=== PATIENT | female | born 2005 | race Caucasian/White ===

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

== ENCOUNTER 2024-10-10 08:27 | Outpatient (REF) | payer OTHER, SELFPAY ==
--- OUTSIDE RECORDS SUMMARY | 2024-10-10 08:35 | XMS_ITS | Clinical Summary ---
Author Organization [facility] Address [address] [place] [address] Phone Care Team Providers Care [employer] Technician Name Role Phone Gia Davila MD Primary Care Pro vider Allergies No known active allergies Medications levothyroxine 88 MCG tablet Take 100 mcg by mouth once daily. 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 Oligomenorrhea, unspecified 02/21/2020 Overview (02/21/2020): Under [facility] care, s/p Provera challenge, continues to have a infrequent period Picking own skin 02/21/2020 Assessment & Plan (02/21/2020 3:12 PM EST): She admits to picking on her skin when she has a bite or scratch Attention and concentration deficit 02/21/2020 Assessment & Plan (02/21/2020 3:15 PM EST): Initial Ona's were given to GM Encounters Date Type Department Care Team Description 10/02/2024 Telephone [facility] [address] [place] [phone] Yoanna Hernandez NP 09/29/2024 9:00 AM EDT Consult [facility] [address] [place] [id number] Sylvester West LICSW Encounter for behavioral health screening (Primary Dx) 09/29/2024 9:00 AM EDT Office Visit [facility] [address] [place] [phone] Yoanna Hernandez NP Well adult exam (Primary Dx); Need for vaccination; BMI 40.0-44.9, adult; Pituitary dysfunction; Class 3 severe obesity due to excess calories without serious comorbidity with body mass index (BMI) of 40.0 to 44.9 in adult; Other specified hypothyroidism; Sleep difficulties; Snoring; Positive depression screening from Last 3 Months Immunizations Immunization Administration Dates Next Due DTaP 01/12/2006, 6,01/27/2005,12/05 HPV Vaccine 9 Valent 09/14/2022,02/21/2020 Hep A, ped/adol 05/08/2011,01/29/2010 Hep B, ped/adol 04/20/2005, 5,2004,09/27 HiB 01/12/2006, 6,01/27/2005,12/05 IPV 01/12/2009, 6,01/27/2005,12/05 Influenza, injectable, quadr ivalent, preservative free 02/24/2021,02/21/2020 MMR 01/13/2008,10/15/2005 Meningococcal B Trumenba 09/29/2024,09/14/2022 Meningococcal Conj (Menactra) MCV4P 02/24/2021 Meningococcal Conj (Menveo) MCV4O 01/27/2016 Pneumococcal Conjugate 10/16/2007,2005,01/27/2005,12/05 Pneumococcal Conjugate 13-Valent 05/03/2014 Tdap 01/27/2016 Varicella 01/12/2009,10/15/2005 Family History Medical History Relation Name Comments Asthma Mother Relation Name Status Comments Father Mother Alive Social History Tobacco Use Types Packs/Day Years Used Date Smoking Tobacco: Never Smokeless Tobacco: Former Tobacco Cessation:Counseling Given: Not Answered Alcohol Use Standard Drinks/Week Comments Never 0 (1 standard drink = 0.6 oz pur e alcohol) Hunger/Food Answer Date Recorded In the last 12 months, did y ou or your family ever eat less than you felt you should because there wasn't enough money for food? No 09/29/2024 Stable Housing Answer Date Recorded Are you worried that in the next 2 months you may not have stable housing? No 09/29/2024 Transportation Concerns Answer Date Rec orded In the last 12 months, have you or your family ever had to go without healthcare because you didn't have a way to get there? No 09/29/2024 Hazards in Home Answer Date Recorded Think about the place you li ve. Do you have problems with any of the following? Pests (mice or roaches), mold, no/not working smoke detectors, water leaks, no window guards. No 2024 Financing Utilities Answer Date Recorde d In the last 12 months, has t he electric, gas, oil, or water company threatened to shut off your services in your home? No 09/29/2024 Safety at Home Answer Date Recorded Are you or your family worried about feeling saf e in your home? No 09/29/2024 Outside Support Answer Date Recorded Do you feel that you need mo re support from other people or programs to help you care for yourself or your family? No 09/29/2024 Understanding Health Concerns Answer Da te Recorded Do you need help understandi ng your or your child's healthcare needs (diagnosis, medications, plan, etc.)? No 09/29/2024 Financing Health Concerns Answer Date R ecorded In the last 12 months, was t here a time when your child needed to see a doctor or get medications or supplies but could not because of cost? No 09/29/2024 Missing School or Work Answer Date Garcia rded Did you or your child miss s chool or work because of a health problem that could have been avoided? No 09/29/2024 Child Education Answer Date Recorded Do you have concerns about y our/your child's learning or behavior in school, preschool, or daycare? No 09/29/2024 Comments No Sex and Gender Information Value Date Recorded Sex Assigned at Not on file Legal Sex Female 10:23 AM EDT Gender Identity Not on file Sexual Orientation Bisexual 02/24/2021 4: 18 PM EST Last Filed Vital Signs Vital Sign Reading Time Taken Comments Blood Pressure 132/84 09/29/2024 9:12 AM EDT Pulse 94 09/29/2024 9:12 AM EDT Temperature 35.6 C (96.1 F) 09/29/2024 9:12 AM EDT Respiratory Rate - - Oxygen Saturation - - Inhaled Oxygen Concentration - - Weight 107 kg (235 lb) 09/29/2024 9:12 AM EDT Height 154.3 cm (5' 0.75 ) 09/29/2024 9:12 AM ED T Body Mass Index 44.77 09/29/2024 9:12 AM EDT Plan of Treatment Upcoming Encounters Date Type Department Care Team (Late st Contact Info) Description 10/30/2024 3:20 PM EDT Office Visit [facility] [address] [phone] Yoanna Hernandez NP [address] [phone] 10/30/2024 3:20 PM EDT Consult [facility] [address] [phone] Sylvester West LICSW [address] [phone] Health Maintenance Due Date Last Done Comments COVID-19 Vaccine (#1) 2009 Pneumococcal Vaccine (1 of 1 - PPSV23, PCV20, or PCV21) 06/28/2014 05/03/2014, 10/16/2007, 04/20/2005, Additional history exists HIV Screening 09/27/2019 Hepatitis C Screening 2022 HPV Vaccines (3 - Risk 3-dos e series) 01/14/2023 09/14/2022, 02/21/2020 Influenza Vaccines (#1) 2023 02/24/2021, 02/20 DTaP,Tdap,and Td Vaccines (6 - Td or Tdap) 01/26/2026 01/27/2016, 01/12/2006, 04/20/2005, Additional history exists Hepatitis B Vaccines Completed 04/20/2005, 01/27/2005, 2004, Additional history exists HIB Vaccines Completed 01/12/2006, 12/2005, 01/27/2005, Additional history exists MMR Vaccines Completed 01/13/2008, 10/15/2005 IPV Vaccines Completed 01/12/2009, 12/2005, 01/27/2005, Additional history exists Varicella Vaccines Completed 01/12/2009, 10/15/2005 Hepatitis A Vaccines Completed 05/08/2011, 01/30/20 10 Meningococcal Vaccine Completed 02/24/2021, 016 Chlamydia and Gonorrhea Screening Discontinued 09/29/2024, 09/14/2022, 09/14/2022, Additional history exists Men B Vaccine Completed 09/29/2024, 09/14/2022 Procedures * Due to [place] state law, this organization might not be sharing sensitive test results. Procedure Name Priority Date/Time Associated Diagnosis Comments POLYSOMNOGRAPHY Routine 09/29/2024 6:11 PM EDT Class 3 severe obesity due to excess calories without serious comorbidity with body mass index (BMI) of 40.0 to 44.9 in adult Sleep difficulties Snoring BRIEF BEHAVIORAL ASSESSMENT - NORMAL(PSC,PHQ9,VANDERB ILT,ETC) Routine 09/29/2024 6:01 PM EDT Well adult exam EPSDT - ADDITIONAL SERVICES FOR STATE FUNDED INSURANCE Routine 09/29/2024 6:01 PM EDT Well adult exam POCT URINALYSIS DIPSTICK Routine 09/29/2024 10:17 AM EDT Well adult exam C. TRACHOMATIS / N. GONORRHOEAE, DNA PROBE Routine 09/29/2024 9:47 AM EDT Well adult exam from Last 3 Months Results * Due to [place] state law, this organization might not be sharing sensitive test results. * POCT urinalysis dipstick (09/29/2024 10:17 AM EDT) Color, Urine, POC Yellow Colorless or Yellow [facility] Clarity, Urine, POC Clear Clear or Slightly Cloudy [facility] Glucose, Urine, POC Negative Negative [facility] Bilirubin, Urine, POC Negative Negative [facility] Ketones, Urine, POC Negative Negative [facility] Specific [place], Urine, POC 1.015 1.003 - 1.030 [facility] Blood, Urine, POC Negative Negative [facility] pH, Urine, POC 7.5 4.6 - 8.0 [facility] Protein, Urine, POC Negative Negative [facility] Urobilinogen, Urine, POC Normal <=1, Normal mg/dL [facility] Nitrite, Urine, POC Negative Negative [facility] Leukocytes, Urine, POC Negative Negative [facility] Urine 09/29/2024 10:1 7 AM EDT us Yoanna Hernandez SENIOR PROGRAM PLANNER POINT OF CARE TEST ORDERABLES Fi nal Result [facility] [address] [facility], [address] [place] [address] * C. trachomatis / N. gonorrhoeae, DNA probe (09/29/2024 9:47 AM EDT) NovoInserted Original Ordering Provider: YOANNA HERNANDEZ [facility] Neisseria gonorrhoeae PCR Negative Negative [facility] Chlamydia Trachomatis DNA, SDA Negative Negative [facility] Urine (Urine) 09/29/2024 9:4 7 AM EDT 09/29/2024 2:53 PM EDT us Yoanna Riosgood SENIOR PROGRAM PLANNER LAB MICROBIOLOGY - GENERAL ORDER JENNY Final Result [facility] from Last 3 Months Insurance [facility] [employer] Care Teams [employer] Technician Relationship Specialty Start Date End Date Gia Davila MD [address] [place] [id number] PCP - General Pediatrics 01/16/20
[2024-10-10 09:08] LABS: Hemoglobin A1C 143.4616 umol/L; Total Hemoglobin (HGBA1C) 3368.6493 umol/L
[2024-10-10 09:41] LABS: Alanine Aminotransferase 57 U/L (0-31); Albumin Level 4.4 g/dL (3.5-5.0); Alkaline Phosphatase 80 U/L (39-117); Anion Gap 12 (12-20); Aspartate Amino Transferase 42 U/L (5-31); Blood Urea Nitrogen 12 mg/dL (9-16); Calcium 9.6 mg/dL (8.4-10.2); Carbon Dioxide 20 mmol/L (22-29); Chloride 109 mmol/L (96-108); Cholesterol 184 mg/dL (<200); Estimated Glomerular Filt Rate > 60; HDL Cholesterol 36 mg/dL (>40); Potassium 4.0 mmol/L (3.3-5.1); Sodium 137 mmol/L (135-145); Total Protein 7.8 g/dL (6.5-8.0); Triglycerides 217 mg/dL (<150)
[2024-10-10 10:03] LABS: Free T4 (Free Thyroxine) 0.83 ng/dL (0.71-1.85)
[2024-10-16 01:54] LABS: IGF-1 (Somatomedin C) 93 ng/mL (83-456); IGF-1 Z Score (Female) -2.2 SD (-2.0 - +2.0)
== END 2024-10-10 08:28 | disposition home or self-care (01) ==
LOC: HO.LAB 08:27
PROVIDERS: PCP Nurse Practitioner Pediatrics; Visit Provider Pediatrics Pediatric Endocrinology
DX: E23.6 Other disorders of pituitary gland (principal); E66.9 Obesity, unspecified
CPT/HCPCS: 36415; 80053; 80061; 82533; 83036; 84305; 84439

== ENCOUNTER 2025-03-19 08:28 | Outpatient (REF) | payer OTHER, SELFPAY ==
[2025-03-19 10:17] LABS: Free T4 (Free Thyroxine) 1.06 ng/dL (0.71-1.85)
== END 2025-03-19 08:29 | disposition home or self-care (01) ==
LOC: HO.LAB 08:28
PROVIDERS: Visit Provider Pediatrics Pediatric Endocrinology
DX: E23.0 Hypopituitarism (principal); E03.8 Other specified hypothyroidism; R73.09 Other abnormal glucose
CPT/HCPCS: 36415; 83036; 84305; 84439